=== PATIENT | female | born 2000 | race African-American/Black ===

== ENCOUNTER 2023-02-11 06:05 | Emergency (ER) | payer MEDICAID ==
[~2023-02-11] VITALS: Ht 170.2 cm; Wt 77.1 kg
[2023-02-11 06:19] VITALS: BP_SYST 151; PULSE 116; RESP 18; TEMP 98; O2SAT 97
[2023-02-11] MEDS ORDERED: PRED50TA PO (06:35)
[2023-02-11] MEDS ORDERED: ZIT250 PO (06:35)
[2023-02-11] MEDS ORDERED: CETI-80 PO (06:35)
== END 2023-02-11 06:34 | disposition home or self-care (01) ==
LOC: SED 06:05
DX: K12.2 Cellulitis and abscess of mouth (principal); R05.9 Cough, unspecified; R09.81 Nasal congestion; J02.9 Acute pharyngitis, unspecified; Z79.899 Other long term (current) drug therapy
CPT/HCPCS: 99283

== ENCOUNTER 2023-03-13 07:19 | Emergency (ER) | payer MEDICAID ==
[~2023-03-13] VITALS: Ht 170.2 cm; Wt 81.6 kg
[~2023-03-13 07:19] MED LIST: CETI-80 PO; PRED50TA PO; ZIT250 PO
[2023-03-13 07:20] VITALS: BP_SYST 129; PULSE 81; RESP 17; TEMP 97.2; O2SAT 99
[2023-03-13] MEDS ORDERED: OFLO5DRO6 EACH EYE (07:36)
[2023-03-13 07:54] VITALS: BP_SYST 129; PULSE 81; RESP 17; TEMP 97.2; O2SAT 99
== END 2023-03-13 07:54 | disposition home or self-care (01) ==
LOC: SED 07:19
DX: H10.9 Unspecified conjunctivitis (principal); Z79.899 Other long term (current) drug therapy
CPT/HCPCS: 99283